=== PATIENT | male | born 1940 | race Caucasian/White ===

== ENCOUNTER 2019-07-25 17:30 | Inpatient (IN) | payer OTHER, MEDICARE ==
[2019-07-25 18:07] LABS: #Eosinphils 0.1 thou/uL (0.0-0.7); #Lymphocytes 3.1 thou/uL (1.20-3.40); #Monocytes 0.9 thou/uL (0.11-0.59); #Neutrophils 9.8 thou/uL (1.40-6.50); %Basophils 0.3 % (0.0-1.0); %Eosinophils 0.5 % (0.0-10.0); %Lymphocytes 22.4 % (21.0-51.0); %Monocytes 6.7 % (0.0-10.0); %Neutrophils 70.1 % (42.0-75.0); Hemoglobin 12.4 g/dL (14.0-18.0); Mean Corpuscular HGB CONC 33.9 g/dL (32.0-36.0); Mean Corpuscular Hemoglobin 30.9 pg (27.0-31.0); Mean Corpuscular Volume 91.1 fL (78.0-98.0); Mean Platelet Volume 7.6 fL (7.4-10.4); Platelet Count 214 thou/uL (130-400); RBC Distribution Width 11.4 % (11.5-14.5); White Blood Cell (WBC) Count 13.9 thou/uL (4.8-10.8)
--- NOTE | 2019-07-25 18:07 | RAD ---
RADIOGRAPH CHEST 1 VIEW: DATE: 07/25/2019 TIME: 5:32 PM HISTORY: 79-year-old male with cough and dyspnea COMPARISON: none FINDINGS: Questionable small focal airspace opacity versus artifact at the retrocardiac portion of left lower l obe. The rest of the lungs are essentially clear. No pneumothorax or pulmonary edema. IMPRESSION: Questionable small left lower lobe infiltrate versus artifact. Recommend lateral view.
[2019-07-25 18:26] LABS: ALT (SGPT) 14 U/L (8-55); AST (SGOT) 15 U/L (5-34); Albumin 3.7 g/dL (3.4-4.8); Alkaline Phosphatase 43 U/L (40-150); Anion Gap 18 mmol/L (10-20); BUN (Urea Nitrogen) 15 mg/dL (8.4-25.7); Bilirubin, Total 0.6 mg/dL (0.2-1.2); Calc. Creatinine Clearance 0 mL/min (70-130); Carbon Dioxide 24 mmol/L (23-31); Chloride 95 mmol/L (98-107); Estimated GFR-MDRD 56; Globulin 2.7 g/dL (2.4-3.5); Glucose 392 mg/dL (83-110); Potassium 4.7 mmol/L (3.5-5.1); Protein, Total 6.4 g/dL (5.8-8.1); Sodium 132 mmol/L (136-145)
[2019-07-25] MEDS ORDERED: Cefepime 2 GM VIAL ONE (20:48)
[2019-07-25] MEDS ORDERED: Vancomycin HCl 1.5 GM in Sodium Chloride 0.9% 250 ML 300 ML IVPB SCH (21:00)
[2019-07-25 22:04] LABS: Lactic Acid 4.8 mmol/L (0.5-2.2)
[2019-07-25 22:54] LABS: Bacteria/HPF None Seen HPF (None Seen); Bilirubin Negative (Negative); Blood, Urine Trace (Negative); Clarity Clear (Clear); Glucose, Urine (Dipstick) Greater than 1000 mg/dL (Negative); Leukocyte Negative Leu/uL (Negative); Nitrite Negative (Negative); Protein, Urine (Dipstick) 10 mg/dL (Neg-Trace); RBC/HPF 0-3 HPF (0-3); Squamous Epithelial None Seen HPF (0-3); Urobilinogen Normal mg/dL (Less than 2); WBC/HPF 0-3 HPF (0-3)
--- NOTE | 2019-07-25 23:04 | PDOC.FPRHP ---
- History of Present Illness Chief Complaint: confusion and cough History of Present Illness: 79 y/o m with pmhx of COPD, DM, HTN, CHF, A. fib, presents to the ED via ambulance after getting confused and weak on a road trip. Pt was traveling to [place] with his son, they stopped in [place] to eat. The pt was walking and began to loose steadiness and almost fell. Pt states he is unsure if he lost consciousness. He states he was talking about calling his father who has been for almost 30 years. He is aware of his confusion now, but at the time that is all that made sense to him. He states he was hallucinating. Son called EMS at this point. PT states he has been coughing with productive yellow sputum since Monday. He c /o of fever close to 100 F since Monday. C/o runny nose, nasal congestion and chest pain when coughing. C/o nausea, denies V/D. ED Course: Pt started on sepsis protocol. Given 3 L of NS, and vanc, cefepime, and levaquin. Chest x-ray showed LLL pneumonia vs artifact. - Allergies/Adverse Reactions Allergies Allergy/AdvReac Type Severity Reaction Status Date / Time dabigatran etexilate Allergy Verified 07/26/19 00:22 [From Pradaxa] penicillamine Allergy Verified 07/26/19 00:22 Penicillins Allergy Verified 07/26/19 00:22 - History PMHx: COPD, CHF, A. Fib, DM, spinal stenosis, HTN PSHx: none FHx: father: Alzheimer's passed at 75, mother: CHF passed at 80 Social: former smoker. - Review of Systems General: reports: fever/chills, night sweats, fatigue. denies: weight/appetite/ sleep changes ENT: reports: nasal congestion, rhinorrhea Respiratory: reports: cough, congestion, shortness of breath, exercise intolerance Cardiovascular: reports: chest pain, edema (LE edema). denies: palpitation Gastrointestinal: reports: nausea. denies: vomiting, diarrhea, abdominal pain, GI bleeding Genitourinary: denies: incontinence, dysuria Skin: denies: rashes Neurological: reports: weakness. denies: numbness - Vital signs BP: 109/64 HR: 84 RR: 16 Tmax: 100.4 Pox: 94% on 1L Wt: 104.33KG - Physical Exam Constitutional: NAD, awake, alert and oriented HEENT: normocephalic and atraumatic, PERRLA, EOMI, conjunctiva clear, no scleral icterus -HEENT: dry MM, poor dentition Neck: supple, FROM, trachea midline, no LAD Chest: no-tender to palpation, no lesions Heart: RRR, normal S1/S2, no murmurs/rubs/gallops, pulses present, no edema Lungs: no respiratory distress, no retractions -Lungs: diffuse expiratory wheezing bilateral rhonchi worse closer to midline. Abdomen: soft, non-tender, bowel sounds present, no masses/distention Musculoskeletal: normal structure, normal tone, ROM grossly normal Neurological: no focal deficit, CN II-XII intact, normal sensation, DTRs 2+ Skin: no rash/lesions, good turgor, no jaundice Heme/Lymphatic: no unusual bruising or bleeding, no purpura, no petechia Psychiatric: normal mood and affect, intact recent and remote memory, other (pt confused, but can redirect himself to the correct orinetaion or the time, place and situation.) FMR H&P: Results - Labs Result Diagrams: 07/25/19 17:52 07/25/19 17:52 Lab results: WBC 13.9 thou/uL (4.8-10.8) H 07/25/19 17:52 Hgb 12.4 g/dL (14.0-18.0) L 07/25/19 17:52 Hct 36.4 % (42.0-52.0) L 07/25/19 17:52 MCV 91.1 fL (78.0-98.0) 07/25/19 17:52 Plt Count 214 thou/uL (130-400) 07/25/19 17:52 Neutrophils % 70.1 % (42.0-75.0) 07/25/19 17:52 Sodium 132 mmol/L (136-145) L 07/25/19 17:52 Potassium 4.7 mmol/L (3.5-5.1) 07/25/19 17:52 Chloride 95 mmol/L (98-107) L 07/25/19 17:52 Carbon Dioxide 24 mmol/L (23-31) 07/25/19 17:52 BUN 15 mg/dL (8.4-25.7) 07/25/19 17:52 Creatinine 1.25 mg/dL (0.7-1.3) 07/25/19 17:52 Glucose 392 mg/dL (83-110) H 07/25/19 17:52 Lactic Acid 4.8 mmol/L (0.5-2.2) H* 07/25/19 21:39 Calcium 9.0 mg/dL (7.8-10.44) 07/25/19 17:52 Total Bilirubin 0.6 mg/dL (0.2-1.2) 07/25/19 17:52 AST 15 U/L (5-34) 07/25/19 17:52 ALT 14 U/L (8-55) 07/25/19 17:52 Alkaline Phosphatase 43 U/L (40-150) 07/25/19 17:52 B-Natriuretic Peptide 111.4 pg/mL (0-100) H 07/25/19 17:52 Serum Total Protein 6.4 g/dL (5.8-8.1) 07/25/19 17:52 Albumin 3.7 g/dL (3.4-4.8) 07/25/19 17:52 Urine Ketones Trace mg/dL (Negative) A 07/25/19 22:20 Urine Blood Trace (Negative) A 07/25/19 22:20 Urine Nitrite Negative (Negative) 07/25/19 22:20 Ur Leukocyte Esterase Negative Micaela/uL (Negative) 07/25/19 22:20 Urine RBC 0-3 HPF (0-3) 07/25/19 22:20 Urine WBC 0-3 HPF (0-3) 07/25/19 22:20 Ur Squamous Epith Cells None Seen HPF (0-3) 07/25/19 22:20 Urine Bacteria None Seen HPF (None Seen) 07/25/19 22:20 - Radiology Interpretation Chest x-ray Status: report reviewed by me (LLL pneumonia vs artifact) FMR H&P: A/P - Problem List (1) CAP (community acquired pneumonia) Current Visit: Yes Status: Acute Code(s): J18.9 - PNEUMONIA, UNSPECIFIED ORGANISM Qualifiers: Laterality: left Lung location: lower lobe of lung Qualified Code(s): J18.1 - Lobar pneumonia, unspecified organism (2) COPD exacerbation Current Visit: Yes Status: Acute Code(s): J44.1 - CHRONIC OBSTRUCTIVE PULMONARY DISEASE W (ACUTE) EXACERBATION (3) Acute respiratory failure with hypoxia Current Visit: Yes Status: Acute Code(s): J96.01 - ACUTE RESPIRATORY FAILURE WITH HYPOXIA (4) Sepsis Current Visit: Yes Status: Acute Code(s): A41.9 - SEPSIS, UNSPECIFIED ORGANISM Qualifiers: Sepsis type: sepsis due to unspecified organism Severe sepsis acute organ dysfunction type: acute respiratory failure Acute respiratory failure type: with hypoxia (5) Hyperglycemia due to type 2 diabetes mellitus Current Visit: Yes Status: Acute Code(s): E11.65 - TYPE 2 DIABETES MELLITUS WITH HYPERGLYCEMIA Qualifiers: Diabetes mellitus meterman insulin use: unspecified meterman insulin use status Qualified Code(s): E11.65 - Type 2 diabetes mellitus with hyperglycemia (6) Acute encephalopathy Current Visit: Yes Status: Acute Code(s): G93.40 - ENCEPHALOPATHY, UNSPECIFIED - Plan 79 y/o M admitted to [facility] inpatient service for treatment and evaluation of Sepsis, LLL pneumonia, COPD exacerbation, and Acute hypoxic respiratory failure. Pt seen by and care plan was discussed with Dr. Devlin. 1. Sepsis secondary to LLL pneumonia - Received 3 L NS in the ED - Continue Vancomycin and Levaquin antibiotic therapy - Monitor vital signs - Lactic acid 4.2, CBC 13.9 - Hold maintenance IV fluid therapy because of pts CHF history. Encourage oral hydration and continue to monitor vitals. 2. COPD Exacerbation - Duoneb treatment - Continue chronic home medications/inhalers - Consider BIPAP - Hold solumedrol right now, because of hyperglycemia in 300's 3. Acute Hypoxic Respiratory Failure, improving - O2 saturation has improved with O2 per nasal canula - Pt was 94% on 1 L NC when evaluated by me 4. LLL pneumonia, most likely CAP - radiographic and clinical evidence of pneumonia - Continue vanc and levaquin 5. Acute Encephalopathy - Most likely secondary to acute infection 6. DM II, Insulin dependent. Hyperglycemia - Restart home Lantus dose 7. Hx of HTN - Hold BP medication until BP's normalize 8. Hx of A. Fib on anticoagulation -continue xarelto 9. Hx of CHF - Will re-evaluate fluid status once pt has received recommended IVF for sepsis. DVT Ppx: continue xarelto Diet: consistent carb diet. Full code Disposition/LOS: Pt stable Admitted to [facility] for inpatient evaluation and treatment. At least 2 hospital night stays necessary. FMR H&P: Upper Level - Pertinent history 79 yo male with multiple medical problems presents for evaluation of AMS and cough. Patient was recently on antibiotics for COPD exacerbation. While traveling with his son he had increased cough with sputum production and feeling unwell. Please see international coordinator note above for further information. General: Male appears stated age, NAD HEENT: Dry mucous membranes, poor dentition CV: Tachycardic rate and irregular rhythm Respiratory: Rhonchi and wheezing bilaterally Abdomen: Soft, nontender, no distention Normoactive BS Extremities: Moving all four symmetrically, pitting edema to knees Neuro: No focal deficits Psych: A&O x3. Responds appropriately. - Plan Date/Time: 07/25/19 0001 IHuey MD, have evaluated this patient and agree with findings/ plan as outlined by international coordinator resident. Pertinent changes/additions are listed here. 1. Sepsis secondary to LLL pneumonia - Continue broad spectrum antibiotics - s/p 30 ml/kg bolus - blood cultures pending 2. Acute hypoxic respiratory failure - O2 supplementation as needed 3. COPD exacerbation - Duonebs - hold on steroids due to blood glucose - Consider starting steroids if glucose better controlled in AM 4. A-fib - Continue home meds 5. DM2 - Continue home regimen - accuchecks PCP: [facility] CODE STATUS: FULL CODE Disposition: Stable, will admit to [facility] for further evaluation and management.
[2019-07-25 23:17] LABS: Strep pneumo Urine Ag NEGATIVE (NEGATIVE)
[2019-07-25] MEDS ORDERED: Acetaminophen 500 MG TAB ONE (23:19)
[2019-07-26 00:18] VITALS: BMI 34.1
[2019-07-26] MEDS ORDERED: Dextrose 5% in Water 1,000 ML IV PRN (00:18)
[2019-07-26] MEDS ORDERED: Dextrose 50% Abboject 50 ML SYRINGE SLOW IVP PRN (00:18)
--- NOTE | 2019-07-26 00:34 | PDOC.EVN ---
Event Note - Event Note Event Note: Date/Time: 07/26/19 0021 I personally evaluated the patient and discussed the management with Dr. Dorsey I agree with the History, Examination, Assessment and Plan documented above with any addition or exceptions noted below- 79 y/o m with pmhx of COPD, DM, HTN , CHF, A. fib, presents to the ED via ambulance after getting confused, having hallucination while traveling to [place] from [place]. The pt was walking and began to loose steadiness and almost fell. Pt states he is unsure if he lost consciousness. Patient endorses a cough productive of yellow sputum for last 2-3 days, temp of 100 yesterday. Reports decreased appetite and increased SOB. PMH/PSH/Meds reviewed and agree with resident's documentation. T102.4 P105 BP 128/79 RR20 98% on 3LNC Exam repeated by me and agree with resident's findings. Labs: WBC=13.9, H/H=12.4/36.4, Fae=728, Tl=035, K=4.7, Cl=95, CO2=24, BUN/Cr=15/1.25, Rgar=207, Lactic acid=4.2 ->4.8, procal=0.11, CXR= LLL infiltrate, EKG- Afib with RVR. A/P: 1) 1) Sepsis secondary to penumonia- initial BP in ER low but responded to fluid resuscitation. Completing bolus currnetly. Will then start gentle fluids and monitor closely due to h/o CHF. 2) Pneumonia- will start vamc and levaquin; blood and urine cultures pending. 3) DM - resume home meds ans pre-meal insulin. 4) a-fb- will treat patient'see fever and see if heart slows. Will check dig level also.
[2019-07-26] MEDS: Acetaminophen 325 MG TAB PO PRN ×2 (01:05→09:07)
[2019-07-26] MEDS ORDERED: PROVENTIL INHALER 6.7 G (200 INHALATIONS) INH PRN (01:23)
[2019-07-26 01:37] LABS: Lactic Acid 5.3 mmol/L (0.5-2.2)
[2019-07-26] MEDS ORDERED: Lactated Ringer's 1,000 ML IV SCH (02:00)
[2019-07-26] MEDS ORDERED: Insulin Glargine 25 UNITS in Pre-Filled Syringe 1 EACH SC SCH ×2 (03:00→21:00)
[2019-07-26] MEDS ORDERED: Morphine 2 MG/ML SYRINGE SLOW IVP SCH (03:00)
[2019-07-26 04:08] LABS: Digoxin Less than 0.15 ng/mL (0.8-2.0)
--- NOTE | 2019-07-26 06:58 | PDOC.FM ---
- Subjective Subjective: Pt resting comfortably in bed, reports SOB and cough have improved. recalls what happened before he came in. - Objective Vital Signs & Weight: Vital Signs (12 hours) Temp Pulse Resp Pulse Ox 07/26/19 04:36 99.7 F H 07/26/19 04:00 2 L 07/26/19 03:02 108 H 24 H 100 07/26/19 00:00 102.4 F H 96 Weight Weight 107.864 kg Most Recent Monitor Data Heart Rate from ECG 109 NIBP 99/60 NIBP BP-Mean 73 Respiration from ECG 26 SpO2 94 I&O: 07/24/19 07/25/19 07/26/19 06:59 06:59 06:59 Intake Total 1442 Output Total 1000 Balance 442 Result Diagrams: 07/26/19 06:52 07/26/19 06:52 Phys Exam - Physical Examination Constitutional: NAD HEENT: moist MMs Neck: no JVD, full ROM Respiratory: wheezing present Cardiovascular: RRR, no significant murmur Gastrointestinal: soft, non-tender Musculoskeletal: no edema, pulses present Neurological: moves all 4 limbs Lymphatic: no nodes Psychiatric: normal affect, A&O x 3 Skin: no rash Dx/Plan (1) Acute encephalopathy Code(s): G93.40 - ENCEPHALOPATHY, UNSPECIFIED Status: Acute (2) Acute respiratory failure with hypoxia Code(s): J96.01 - ACUTE RESPIRATORY FAILURE WITH HYPOXIA Status: Acute (3) CAP (community acquired pneumonia) Code(s): J18.9 - PNEUMONIA, UNSPECIFIED ORGANISM Status: Acute Qualifiers: Laterality: left Lung location: lower lobe of lung Qualified Code(s): J18.1 - Lobar pneumonia, unspecified organism (4) COPD exacerbation Code(s): J44.1 - CHRONIC OBSTRUCTIVE PULMONARY DISEASE W (ACUTE) EXACERBATION Status: Acute (5) Hyperglycemia due to type 2 diabetes mellitus Code(s): E11.65 - TYPE 2 DIABETES MELLITUS WITH HYPERGLYCEMIA Status: Acute Qualifiers: Diabetes mellitus penitentiary insulin use: unspecified penitentiary insulin use status Qualified Code(s): E11.65 - Type 2 diabetes mellitus with hyperglycemia (6) Sepsis Code(s): A41.9 - SEPSIS, UNSPECIFIED ORGANISM Status: Acute Qualifiers: Sepsis type: sepsis due to unspecified organism Severe sepsis acute organ dysfunction type: acute respiratory failure Acute respiratory failure type: with hypoxia - Plan Plan: Sepsis secondary to LLL pneumonia - afebrile, hypotense, elevated WBC on admission, s/p 30ml/kg in ED - Vancomycin and Levaquin - IVF DCd 2/2 volume overload - trend procal and lactic acid COPD Exacerbation - Duonebs, abx as above - Continue chronic home medications/inhalers - consider beginning prednisone and treating hyperglycemia that follows Acute Hypoxic Respiratory Failure, improving - O2 saturation has improved with O2 per nasal canula - continue monitoring in ICU Acute Encephalopathy, resolved - Most likely secondary to acute infection DM II, Insulin dependent. - resume home dose HTN - Hold BP medication until BP's normalize A. Fib on anticoagulation -continue xarelto CHF - monitor for fluid overload, cautious IVF resus DVT Ppx: continue xarelto Diet: consistent carb diet. Full code Disposition/LOS: continue supportive care, monitor respiratory status in imcu Addendum - Attending - Attending Attestation Date/Time: 07/26/19 1037 I personally evaluated the patient and discussed the management with Dr. Goldberg. I agree with the History, Examination, Assessment and Plan documented above with any addition or exceptions noted below. Patient says he is markedly improved today compared with overnight. Denies cp, does have some sob/cough, chills, but no fever. On exam his is tachycardic but regular; lungs with diffuse wheezing and scant insp crackles. A/P: Sepsis 2/2 PNA with comorbid COPD exac -steorids, vanc/levaquin, duonebs CHF in the setting of afib -hold lasix, continue dig, monitor bp and fluid status Anemia -limited workup in hospital, may need to follow as outpatient.
[2019-07-26 07:08] LABS: Hemoglobin 11.9 g/dL (14.0-18.0); Mean Corpuscular HGB CONC 33.8 g/dL (32.0-36.0); Mean Corpuscular Hemoglobin 30.8 pg (27.0-31.0); Mean Corpuscular Volume 91.1 fL (78.0-98.0); Mean Platelet Volume 7.5 fL (7.4-10.4); Platelet Count 170 thou/uL (130-400); RBC Distribution Width 11.6 % (11.5-14.5); Red Blood Cell (RBC) Count 3.85 mill/uL (4.70-6.10); White Blood Cell (WBC) Count 9.9 thou/uL (4.8-10.8)
[2019-07-26 07:19] LABS: Lactic Acid 2.6 mmol/L (0.5-2.2)
[2019-07-26 07:26] LABS: Anion Gap 13 mmol/L (10-20); BUN (Urea Nitrogen) 14 mg/dL (8.4-25.7); Calc. Creatinine Clearance 103 mL/min (70-130); Calcium 8.4 mg/dL (7.8-10.44); Carbon Dioxide 23 mmol/L (23-31); Chloride 98 mmol/L (98-107); Estimated GFR-MDRD 80; Glucose 349 mg/dL (83-110); Potassium 4.2 mmol/L (3.5-5.1); Sodium 130 mmol/L (136-145)
[2019-07-26 08:14] LABS: Band 29 % (5-11); Lymphocytes 13 % (21-51); MDiff Complete? YES; Monocytes 3 % (0-10); Myelocyte 1 % (0-0); Neutrophil 53 % (42-75); RBC Morphology Normal; Reactive Lymphocytes 1 % (0-10)
[2019-07-26] MEDS: metFORMIN 500 MG TAB PO SCH ×2 (08:18→17:32)
[2019-07-26] MEDS: HumaLOG 300 UNITS/3 ML VIAL SC SCH ×3 (08:19→17:32)
[2019-07-26] MEDS ORDERED: INSULIN DETEMIR 20 UNIT SC SCH (09:00)
[2019-07-26] MEDS ORDERED: Non-Formulary Item 1 EACH (Tiotropium Bromide [Spiriva Respimat] 2 INH) INH SCH (09:00)
[2019-07-26] MEDS ORDERED: Insulin Glargine 20 UNITS in Pre-Filled Syringe 1 EACH SC SCH (09:00)
[2019-07-26] MEDS ORDERED: Vancomycin HCl 1.5 GM in Sodium Chloride 0.9% 250 ML 300 ML IVPB SCH (09:00)
[2019-07-26] MEDS: Magnesium Oxide 400 MG TAB PO SCH ×2 (09:09→20:41)
[2019-07-26] MEDS: Atorvastatin Calcium 20 MG TAB PO SCH (09:09)
[2019-07-26] MEDS: Gabapentin 300 MG CAP PO SCH ×3 (09:10→20:41)
[2019-07-26] MEDS: Digoxin 0.25 MG TAB PO SCH (09:12)
[2019-07-26] MEDS: Rivaroxaban 10 MG TAB PO SCH (09:13)
[2019-07-26 09:15] LABS: ALT (SGPT) 12 U/L (8-55); AST (SGOT) 14 U/L (5-34); Albumin 3.3 g/dL (3.4-4.8); Alkaline Phosphatase 36 U/L (40-150); Bilirubin, Total 0.9 mg/dL (0.2-1.2); Globulin 2.6 g/dL (2.4-3.5); Protein, Total 5.9 g/dL (5.8-8.1)
[2019-07-26] MEDS: Insulin Glargine 50 UNITS in Pre-Filled Syringe 1 EACH SC SCH ×2 (09:32→21:39)
[2019-07-26] MEDS ORDERED: predniSONE 20 MG TAB PO SCH (10:30)
[2019-07-26] MEDS: HYDROcodone/Acetaminophen 10/325 mg Tablet PO SCH ×2 (14:35→20:41)
--- NOTE | 2019-07-26 15:29 | PQF ---
CLINICAL DOCUMENTATION IMPROVEMENT CLARIFICATION FORM: ICD-10 Updated PLEASE DO AN ADDENDUM TO THE PROGRESS NOTE WITH ANY DOCUMENTATION UPDATES OR ADDITIONS AND CARRY THROUGH TO DC SUMMARY. THANK YOU. DATE: 07/26/19 ATTN: DR. JACOB Please exercise your independent, professional judgment in responding to the clarification form. Clinical indicators are provided on the bottom of this form for your review Please check appropriate box(s): [ ] Encephalopathy: Type: [ x] Acute [ ] Subacute [ ] Chronic Etiology: [ x ] Hypertensive [ ] Metabolic [ ] Toxic [ ] Hepatic with Coma [ ] Hepatic w/o Coma [ ] Hypoxic [ ] Septic [ ] Drug induced: [ ] Unspecified [ ] in the setting of underlying dementia [ ] Other (please specify) [ ] Transient Alteration of Awareness [ ] Other diagnosis [ ] Unable to determine In addition, please specify: Present on Admission (POA): [ x] Yes [ ] No [ ] Unable to determine For continuity of documentation, please document condition throughout progress notes and discharge summary. Thank You. CLINICAL INDICATORS - SIGNS / SYMPTOMS / LABS H&P: "ACUTE ENCEPHALOPATHY" RISKS: SEPSIS (H&P 07/25) PNEUMONIA (07/25) TREATMENT: IV FLUIDS (ER-07/26) IV VANCOMYCIN (ER-PRESENT) IV CEFEPIME (ER) IV LEVAQUIN (ER-PRESENT) (This form is maintained as a part of the permanent medical record) 2014 [employer]. All Rights Reserved FOX [email or web address] Office: [phone] [facility]
--- NOTE | 2019-07-27 01:03 | CON ---
DATE OF CONSULTATION: HISTORY OF PRESENT ILLNESS: Mr. Fuentes is a pleasant gentleman, who gets his medical care in [place], [place]. He was traveling with his son to [place] and began to get confused. His son stopped in [place] and called EMS. His mental status has improved back to a baseline. He is very quick to answer questions and quite oriented. He was admitted with a diagnosis of pneumonia. He did say he has had a temperature elevation and a cough for several days prior to traveling. PAST MEDICAL HISTORY: Remarkable for; 1. COPD. 2. Diabetes. 3. Hypertension. 4. History of atrial fibrillation. ALLERGIES: HE HAS A HISTORY OF PRADAXA INTOLERANCE AND ALLERGY TO AMINE AND PENICILLIN. FAMILY HISTORY: Positive for cardiomyopathy. No history of lung disease in early age. Does not smoke. He is not a daily drinker. He did smoke in the past. REVIEW OF SYSTEMS: A 10-point review of systems is otherwise negative at this time. PHYSICAL EXAMINATION: GENERAL: He is a pleasant gentleman, in no distress. Heart rate is 88, respiratory rate is 18, oximetry is 93% on room air, blood pressure is 101/59. HEENT: Pupils are equal. Sclerae are anicteric. NECK: Supple. LUNGS: Clear. HEART: Regular rhythm. S1 and S2 are normal. ABDOMEN: Soft and nontender. EXTREMITIES: Without clubbing, cyanosis, or edema. NEUROLOGIC: Grossly nonfocal. IMAGING: Chest radiograph was reviewed by me. It is debatable whether or not there is actually an infiltrate behind his heart. IMPRESSION: Pneumonia with an encephalopathy associated with that? At this point in time, I think it would be more appropriate to do a noncontrast CT of his chest to better define whether or not he has a pulmonary parenchymal infiltrate or even a mass lesion. Given his dramatic clinical improvement, I suspect this is an encephalopathy brought on by this possible infectious process. It is unlikely given his rapid improvement that he had meningitis or encephalitis. Blood cultures are negative. His vancomycin could be discontinued if they remain negative in the morning. TIME SPENT: This is a 70-minute consult, 50% of the time spent on the unit coordinating care. Job ID: [id number]
[2019-07-27] MEDS: Acetaminophen 325 MG TAB PO PRN (04:34)
[2019-07-27 05:31] LABS: ALT (SGPT) 12 U/L (8-55); AST (SGOT) 13 U/L (5-34); Albumin 3.4 g/dL (3.4-4.8); Alkaline Phosphatase 42 U/L (40-150); Anion Gap 15 mmol/L (10-20); BUN (Urea Nitrogen) 15 mg/dL (8.4-25.7); Bilirubin, Total 0.5 mg/dL (0.2-1.2); Calc. Creatinine Clearance 106 mL/min (70-130); Calcium 9.1 mg/dL (7.8-10.44); Carbon Dioxide 23 mmol/L (23-31); Chloride 98 mmol/L (98-107); Estimated GFR-MDRD 84; Glucose 334 mg/dL (83-110); Potassium 4.3 mmol/L (3.5-5.1); Protein, Total 6.4 g/dL (5.8-8.1); Sodium 132 mmol/L (136-145)
[2019-07-27] MEDS: HumaLOG 300 UNITS/3 ML VIAL SC SCH ×3 (06:18→17:28)
[2019-07-27] MEDS ORDERED: Insulin Regular 300 UNITS/3 ML VIAL SC PRN (06:42)
--- NOTE | 2019-07-27 06:45 | PDOC.FM ---
- Subjective Subjective: pt resting comfortably at bed, near baseline for O2. reports cough, improving SOBd - Objective Vital Signs & Weight: Vital Signs (12 hours) Temp Pulse Resp Pulse Ox 07/27/19 06:31 92 13 96 07/27/19 03:46 97.2 F L 07/27/19 02:59 93 17 95 07/26/19 23:47 98.7 F 07/26/19 22:10 88 21 H 94 L 07/26/19 20:00 98.4 F 93 L Weight Admit Weight 107.864 kg Weight 105.687 kg Most Recent Monitor Data Heart Rate from ECG 90 NIBP 108/70 NIBP BP-Mean 82 Respiration from ECG 18 SpO2 93 I&O: 07/25/19 07/26/19 07/27/19 06:59 06:59 06:59 Intake Total 1442 440 Output Total 1000 1575 Balance 442 -5565 Result Diagrams: 07/26/19 06:52 07/27/19 04:42 Phys Exam - Physical Examination Constitutional: NAD HEENT: moist MMs, sclera anicteric Neck: no JVD, full ROM Respiratory: wheezing present Cardiovascular: no significant murmur, irregular Gastrointestinal: positive bowel sounds Musculoskeletal: no edema, pulses present Neurological: moves all 4 limbs Skin: no rash Dx/Plan (1) Acute encephalopathy Code(s): G93.40 - ENCEPHALOPATHY, UNSPECIFIED Status: Acute (2) Acute respiratory failure with hypoxia Code(s): J96.01 - ACUTE RESPIRATORY FAILURE WITH HYPOXIA Status: Acute (3) CAP (community acquired pneumonia) Code(s): J18.9 - PNEUMONIA, UNSPECIFIED ORGANISM Status: Acute Qualifiers: Laterality: left Lung location: lower lobe of lung Qualified Code(s): J18.1 - Lobar pneumonia, unspecified organism (4) COPD exacerbation Code(s): J44.1 - CHRONIC OBSTRUCTIVE PULMONARY DISEASE W (ACUTE) EXACERBATION Status: Acute (5) Hyperglycemia due to type 2 diabetes mellitus Code(s): E11.65 - TYPE 2 DIABETES MELLITUS WITH HYPERGLYCEMIA Status: Acute Qualifiers: Diabetes mellitus intermediate project manager insulin use: unspecified detention insulin use status Qualified Code(s): E11.65 - Type 2 diabetes mellitus with hyperglycemia (6) Sepsis Code(s): A41.9 - SEPSIS, UNSPECIFIED ORGANISM Status: Acute Qualifiers: Sepsis type: sepsis due to unspecified organism Severe sepsis acute organ dysfunction type: acute respiratory failure Acute respiratory failure type: with hypoxia - Plan Plan: Sepsis secondary to LLL pneumonia - afebrile, hypotense, elevated WBC on admission, s/p 30ml/kg in ED - Vancomycin and Levaquin - IVF DCd 2/2 volume overload - trend procal and lactic acid - CT pending COPD Exacerbation - Duonebs, abx as above, daily prednisone - Continue chronic home medications/inhalers Acute Hypoxic Respiratory Failure, improving - O2 saturation has improved with O2 per nasal canula - consider txfr to floor today Acute Encephalopathy, resolved - Most likely secondary to acute infection DM II, Insulin dependent. - resume home dose, increase 2/2 hyperglycemia HTN - Hold BP medication until BP's normalize A. Fib on anticoagulation -continue xarelto CHF - monitor for fluid overload, cautious IVF resus DVT Ppx: continue xarelto Diet: consistent carb diet. Full code Disposition/LOS: further eval lung pathology, consider txfr to tele later today
[2019-07-27] MEDS ORDERED: Insulin Glargine 55 UNITS in Pre-Filled Syringe 1 EACH SC SCH (07:00)
--- NOTE | 2019-07-27 07:35 | CT ---
CT THORAX WITHOUT IV CONTRAST: Date: 07/27/19 INDICATION: History of pneumonia. COMPARISON: Chest radiograph dated 07/25/19. FINDINGS: There is marked consolidation of the left lower lobe. There are areas of suspected subsegmental volum e loss within the posterior right lower lobe. There is scattered emphysema. There is a 0.9 x 0.4 cm p ulmonary nodule within the right middle lobe. There are coronary artery and thoracic aortic calcifications. No pathologically enlarged lymph nodes are seen within the mediastinum or axillary regions. Lack of IV contrast limits evaluation of the hil ar regions for lymphadenopathy. There is a 9 mm right adrenal nodule. There is an 11 mm left adrenal nodule. There is scattered degenerative and osteoarthritic change. IMPRESSION: 1. Left lower lobe pneumonia. 2. Areas of subsegmental volume loss involving the posterior right lower lobe. 3. Moderate emphysema. 4. 0.9 x 0.4 cm right middle lobe pulmonary nodule. Follow-up CT examination in 3-6 months is recomm ended to document stability of this abnormality. 5. Bilateral adrenal nodules. Follow-up CT of abdomen utilizing adrenal mass protocol may be helpful for improved characterization. POS: RICHARD
[2019-07-27 08:36] LABS: Vancomycin, Trough 11.5 ug/mL
[2019-07-27] MEDS: Rivaroxaban 10 MG TAB PO SCH (08:57)
[2019-07-27] MEDS: Digoxin 0.25 MG TAB PO SCH (08:57)
[2019-07-27] MEDS: Gabapentin 300 MG CAP PO SCH ×3 (08:58→20:30)
[2019-07-27] MEDS: predniSONE 20 MG TAB PO SCH (08:58)
[2019-07-27] MEDS: Magnesium Oxide 400 MG TAB PO SCH ×2 (08:58→20:28)
[2019-07-27] MEDS: Atorvastatin Calcium 20 MG TAB PO SCH (08:58)
[2019-07-27] MEDS: metFORMIN 500 MG TAB PO SCH ×2 (08:58→17:28)
[2019-07-27] MEDS: HYDROcodone/Acetaminophen 10/325 mg Tablet PO SCH (08:59)
--- NOTE | 2019-07-27 11:37 | PRG ---
DATE OF SERVICE: 07/27/2019 Mr. Fuentes is a 79-year-old man, who was also followed by the Intensive Care Service. He had a pneumonia, which seems to be improving. Recently, he had a CT scan, which shows a possible mass lesion. In the event, he is clinically stable and we transferred to a regular floor, where we will continue to treat his pneumonia. Further workup of the possible lung mass depends on his response to treatment for pneumonia and the decisions of the intensive care doctor. Job ID: [id number]
[2019-07-27] MEDS: HYDROcodone/Acetaminophen 10/325 mg Tablet PO PRN ×2 (15:18→20:28)
--- NOTE | 2019-07-27 17:58 | PRG ---
DATE OF SERVICE: SUBJECTIVE: Ilan Fuentes says he is feeling much better. I met with his son today as well as the patient. OBJECTIVE: VITAL SIGNS: He is afebrile, heart rate is 85, respiratory rate is 16, blood pressure is 111/77. LUNGS: Remarkable for crackles at his left base. He has no wheezes. HEART: Regular rhythm. ABDOMEN: Soft and nontender. EXTREMITIES: Without edema. LABORATORY DATA: Electrolytes are unremarkable. Glucoses were high, greater than 300 all day today. IMPRESSION: Community-acquired pneumonia. I reviewed his chest CT, does have bibasilar alveolar infiltrates, worse on the left. He has a nodule in his right middle lobe, but it is debatable whether or not this is significant. Community-acquired pneumonia with encephalopathy associated with that, clinically stable. He will be a candidate to switch to p.o. antimicrobial therapy tomorrow and discharged home in my opinion. He will need to get a copy of his CAT scan here before he is discharged and bring it back to [facility] for his physician to review. He should have a followup CAT scan without contrast in 3 months. He needs a followup exam with his physician in 3 to 4 weeks as long as he is clinically stable. He is undecided as to whether he is going back to [facility] or heading on to [place] when he gets out of here. His monitoring could be discontinued in my opinion. Job ID: [id number]
[2019-07-27] MEDS: Insulin Glargine 55 UNITS in Pre-Filled Syringe 1 EACH SC SCH (20:30)
[2019-07-27] MEDS: Insulin Regular 300 UNITS/3 ML VIAL SC PRN (20:31)
[2019-07-28] MEDS: HYDROcodone/Acetaminophen 10/325 mg Tablet PO PRN ×2 (01:39→06:35)
[2019-07-28] MEDS: Insulin Regular 300 UNITS/3 ML VIAL SC PRN (02:08)
[2019-07-28 06:00] LABS: #Lymphocytes 1.5 thou/uL (1.20-3.40); #Monocytes 0.6 thou/uL (0.11-0.59); #Neutrophils 9.5 thou/uL (1.40-6.50); %Basophils 0.4 % (0.0-1.0); %Eosinophils 0.2 % (0.0-10.0); %Lymphocytes 12.9 % (21.0-51.0); %Monocytes 5.2 % (0.0-10.0); %Neutrophils 81.3 % (42.0-75.0); Hemoglobin 10.9 g/dL (14.0-18.0); Mean Corpuscular HGB CONC 33.3 g/dL (32.0-36.0); Mean Corpuscular Hemoglobin 30.2 pg (27.0-31.0); Mean Corpuscular Volume 90.9 fL (78.0-98.0); Mean Platelet Volume 8.3 fL (7.4-10.4); Platelet Count 182 thou/uL (130-400); RBC Distribution Width 11.4 % (11.5-14.5); White Blood Cell (WBC) Count 11.7 thou/uL (4.8-10.8)
[2019-07-28 06:17] LABS: ALT (SGPT) 11 U/L (8-55); AST (SGOT) 9 U/L (5-34); Albumin 3.3 g/dL (3.4-4.8); Alkaline Phosphatase 40 U/L (40-150); Anion Gap 12 mmol/L (10-20); BUN (Urea Nitrogen) 20 mg/dL (8.4-25.7); Bilirubin, Total 0.3 mg/dL (0.2-1.2); Calc. Creatinine Clearance 109 mL/min (70-130); Calcium 9.2 mg/dL (7.8-10.44); Carbon Dioxide 25 mmol/L (23-31); Chloride 98 mmol/L (98-107); Estimated GFR-MDRD 87; Globulin 2.7 g/dL (2.4-3.5); Glucose 321 mg/dL (83-110); Potassium 4.2 mmol/L (3.5-5.1); Sodium 131 mmol/L (136-145)
[2019-07-28] MEDS: HumaLOG 300 UNITS/3 ML VIAL SC SCH (06:28)
--- NOTE | 2019-07-28 06:43 | PDOC.FM ---
- Subjective Subjective: pt resting comfortably in bed, SOB at baseline, reports cough - Objective Vital Signs & Weight: Vital Signs (12 hours) Temp Pulse Resp Pulse Ox 07/28/19 03:11 97.9 F 07/28/19 02:33 89 20 96 07/27/19 23:16 98.0 F 07/27/19 22:14 96 17 96 07/27/19 20:00 95 07/27/19 19:13 97.6 F Weight Admit Weight 107.864 kg Weight 106.005 kg Most Recent Monitor Data Heart Rate from ECG 84 NIBP 124/74 NIBP BP-Mean 90 Respiration from ECG 16 SpO2 94 I&O: 07/26/19 07/27/19 07/28/19 06:59 06:59 06:59 Intake Total 7959 336 0945 Output Total 1000 1575 1450 Balance 442 -1135 -130 Result Diagrams: 07/28/19 05:22 07/28/19 05:22 Phys Exam - Physical Examination Constitutional: NAD HEENT: moist MMs Neck: no JVD Respiratory: wheezing present Cardiovascular: no significant murmur Gastrointestinal: no distention Musculoskeletal: pulses present Neurological: moves all 4 limbs Psychiatric: normal affect Skin: no rash Dx/Plan (1) Acute encephalopathy Code(s): G93.40 - ENCEPHALOPATHY, UNSPECIFIED Status: Acute (2) Acute respiratory failure with hypoxia Code(s): J96.01 - ACUTE RESPIRATORY FAILURE WITH HYPOXIA Status: Acute (3) CAP (community acquired pneumonia) Code(s): J18.9 - PNEUMONIA, UNSPECIFIED ORGANISM Status: Acute Qualifiers: Laterality: left Lung location: lower lobe of lung Qualified Code(s): J18.1 - Lobar pneumonia, unspecified organism (4) COPD exacerbation Code(s): J44.1 - CHRONIC OBSTRUCTIVE PULMONARY DISEASE W (ACUTE) EXACERBATION Status: Acute (5) Hyperglycemia due to type 2 diabetes mellitus Code(s): E11.65 - TYPE 2 DIABETES MELLITUS WITH HYPERGLYCEMIA Status: Acute Qualifiers: Diabetes mellitus retirement insulin use: unspecified ocean transportation intermediary insulin use status Qualified Code(s): E11.65 - Type 2 diabetes mellitus with hyperglycemia (6) Sepsis Code(s): A41.9 - SEPSIS, UNSPECIFIED ORGANISM Status: Acute Qualifiers: Sepsis type: sepsis due to unspecified organism Severe sepsis acute organ dysfunction type: acute respiratory failure Acute respiratory failure type: with hypoxia - Plan Plan: Sepsis secondary to LLL pneumonia - afebrile, hypotense, elevated WBC on admission, s/p 30ml/kg in ED - Vancomycin and Levaquin transition to oral levaquin/amox - IVF DCd 2/2 volume overload - CT reveals lobar pna and undifferentiated nodule noted on previous CT scans COPD Exacerbation - Duonebs, abx as above, daily prednisone - Continue chronic home medications/inhalers Acute Hypoxic Respiratory Failure, improving - O2 saturation has improved with O2 per nasal canula - at baseline Acute Encephalopathy, resolved - Most likely secondary to acute infection DM II, Insulin dependent. - resume home dose, increase 2/2 hyperglycemia HTN - Hold BP medication until BP's normalize A. Fib on anticoagulation -continue xarelto CHF - monitor for fluid overload, cautious IVF resus DVT Ppx: continue xarelto Diet: consistent carb diet. Full code Disposition/LOS: transition to po abx and dc today
[2019-07-28 07:07] VITALS: TEMP 97.3
[2019-07-28] MEDS: Insulin Glargine 55 UNITS in Pre-Filled Syringe 1 EACH SC SCH (08:49)
[2019-07-28] MEDS: Gabapentin 300 MG CAP PO SCH (08:50)
[2019-07-28] MEDS: Atorvastatin Calcium 20 MG TAB PO SCH (08:50)
[2019-07-28] MEDS: Magnesium Oxide 400 MG TAB PO SCH (08:50)
[2019-07-28] MEDS: metFORMIN 500 MG TAB PO SCH (08:50)
[2019-07-28] MEDS: predniSONE 20 MG TAB PO SCH (08:50)
[2019-07-28] MEDS: Rivaroxaban 10 MG TAB PO SCH (08:50)
[2019-07-28] MEDS: Digoxin 0.25 MG TAB PO SCH (08:50)
--- NOTE | 2019-07-28 10:17 | PRG ---
DATE OF SERVICE: 07/28/2019 Mr. Fuentes continues to look and feel better. He is afebrile. He will be discharged today on oral Levaquin and [facility]. He also needs to be following up on a possible lung mass, and we will take the CT disk with him. Job ID: [id number]
== END 2019-07-28 10:36 | disposition home or self-care (01) | DRG 871 ==
LOC: ERS 17:30 → IMCU/EMU 21:51
PROVIDERS: ADMIT Family Medicine; ATTEND Family Medicine
DX: A41.9 Sepsis, unspecified organism (principal); J96.01 Acute respiratory failure with hypoxia; J18.1 Lobar pneumonia, unspecified organism; J44.1 Chronic obstructive pulmonary disease with (acute) exacerbation; I67.4 Hypertensive encephalopathy; J44.0 Chronic obstructive pulmonary disease with (acute) lower respiratory infection; I11.0 Hypertensive heart disease with heart failure; F17.210 Nicotine dependence, cigarettes, uncomplicated; I48.91 Unspecified atrial fibrillation; E11.65 Type 2 diabetes mellitus with hyperglycemia; D64.9 Anemia, unspecified; R65.20 Severe sepsis without septic shock; I50.9 Heart failure, unspecified; Z79.01 Long term (current) use of anticoagulants; Z88.0 Allergy status to penicillin; Z88.8 Allergy status to other drugs, medicaments and biological substances; Z99.81 Dependence on supplemental oxygen; Z87.891 Personal history of nicotine dependence; F32.9 Major depressive disorder, single episode, unspecified; F41.9 Anxiety disorder, unspecified; Z79.4 Long term (current) use of insulin
CPT/HCPCS: 36415; 36416; 71045; 71250; 80053; 80162; 80202; 81003; 81015; 83605; 83880; 84145; 85025; 87040; 87449; 87804; 93005; 94640; 96365; 96366; 96367; J0692; J1815; J1956; J2270; J3370; J7050; J7512; J7620